=== PATIENT | female | born 1950 | race Caucasian/White ===

== ENCOUNTER → 2019-02-10 | Day surgery (SDC) | payer OTHER, BC ==
--- NOTE | 2019-02-13 14:08 | PATH ---
Surgical Pathology Report Patient Name: RACHEL MCKEON [facility]. Rec. #: [id number] /Age/Gender: 1950 (Age: 68) / F Account: [id number] Location: [facility] RADIOLOGY U Taken: 02/10/2019 Received: 02/10/2019 Reported: 02/13/2019 Physicians: Shiela Pearce M.D. Specimen(s) Received RIGHT BREAST CORE BIOPSY 2N6 Clinical History Nonpalpable lesion Ultrasound findings: Highly suspicious/malignant Final Diagnosis Breast, right, 2:00 6 CM FN, core biopsy: Invasive lobular carcinoma, CLASSICAL and trabecular type (Khadijah grade 2), measuring at least 1.1 cm in greatest dimension In this material. (See note) Lobular carcinoma in situ (LCIS), classical type. Small intraductal papilloma. Note: E-Cadherin immunostain (performed at [facility]) is negative in the invasive and in situ carcinoma, which supports lobular phenotype. Results of ER and CT studies performed at [facility] are as follows: ER (clone [id number] mouse monoclonal antibody by [employer]): > 95 % nuclear staining with strong intensity (Positive). CT (clone16 mouse monoclonal antibody by Le[employer]): ~20 % nuclear staining with moderate intensity (Positive). Results of Her2 & Ki67 studies will be reported separately in an addendum. Positive and negative controls (internal if applicable) show appropriate results. Formalin fixation and cold ischemic times are within current ASCO/CAP recommendations for ER, CT and Her2 testing. Electronically Signed Dione Holm M.D. Addendum Reported: 02/14/2019 Addendum Diagnosis Results of Her2 (IHC) & Ki-67 studies at [place], [place] ([id number]) are as follows: Her2 IHC (EP3 from [employer], formerly known as [id number], using Dunn Polymer Refine detection kit): 0 (negative). Ki-67: ~20% (intermediate proliferative index). Positive and negative controls (internal if applicable) show appropriate results. Dione Holm M.D. Gross Description Received in formalin labeled "right breast 2:00, 6 cmfn," is a 2.7 x 2.2 x 0.3 cm aggregate of multiple bui-yellow, irregular to cylindrical portions of fibroadipose tissue admixed with blood clot. The formalin is filtered and the specimen is entirely submitted in one cassette. Time to formalin fixation: < 1 minute Total formalin fixation time: Approximately 6 hours. 02/10/201902/10/2019
--- NOTE | 2019-02-13 16:29 | OP ---
DATE OF OPERATION: 02/10/2019 PREOPERATIVE DIAGNOSIS: Right breast mass 2 o'clock 6 cm from the nipple. POSTOPERATIVE DIAGNOSIS: Right breast mass 2 o'clock 6 cm from the nipple. PROCEDURE: Right ultrasound-guided core biopsy with clip placement. ANESTHESIA: Local. ATTENDING SURGEON: Grace Chin MD ESTIMATED BLOOD LOSS: Minimal. COMPLICATIONS: None. DESCRIPTION OF PROCEDURE: Patient was made aware of the risks and benefits of the procedure and consented. She was placed in a supine position, and under sterile conditions after local anesthesia was administered, small kat was made in the skin. Using a 10-gauge suction biopsy device via lateral approach, multiple cores were obtained and submitted to Pathology. Likewise, under ultrasound guidance, a bowtie clip was placed into the biopsy region. Well tolerated by patient. Steri-Strips and a sterile bandage were applied. We will contact her with results. GRACE CHIN M.D. [id number]
== END | disposition home or self-care (01) ==
LOC: EDSTATUS 13:00 → FRADUS 13:01 → FRADUS-SUR 13:21
PROVIDERS: ATTEND Surgery Surgical Oncology
PROC: 0HBT3ZX Excision of Right Breast, Percutaneous Approach, Diagnostic (ICD-10-PCS; principal; 2019-02-10)
DX: C50.911 Malignant neoplasm of unspecified site of right female breast (principal); Z17.0 Estrogen receptor positive status [ER+]; D24.1 Benign neoplasm of right breast; N63.12 Unspecified lump in the right breast, upper inner quadrant
CPT/HCPCS: 19083; 77065-TC; 87899; 88305-TC; 88342-TC; A4648

== ENCOUNTER 2019-03-02 10:10 | Inpatient (IN) | payer OTHER, BC ==
[2019-02-21 15:20] VITALS: BMI 34.9
--- NOTE | 2019-03-01 10:16 | HP ---
Admitting History and Physical - Primary Care Physician PCP: Wilver Santiago - Admission Chief Complaint: right breast cancer History of Present Illness: Patient is a 68 yo female with h/o left mastectomy sec to breast cancer (2011) who presents with a right mammo and US on 01/30 showing a suspicious density in the right 2 oclock position. Patient underwent a core bx of this lesion which revealed an invasive lobular ca ER positive, CA pos, HER 2 neg. Patient was unable to undergo MRI sec to elevated BUN/Creatinine. Patient has opted to have a right mastectomy with reconstruction. History Source: Patient Limitations to Obtaining History: No Limitations - Past Medical History Gastrointestinal: Yes: Cancer (left breast cancer 2011, 2006) ...: No Heme/Onc: Yes: Thrombocytopenia, Other (TTP) - Past Surgical History Past Surgical History: Yes: Breast Biopsy (Left breast (1971) left breast WE and snbx (2006)), Mastectomy (Left mastectomy and snbx (2011)) - Smoking History Smoking history: Former smoker Have you smoked in the past 12 months: No If you are a former smoker, when did you quit?: - Alcohol/Substance Use Hx Alcohol Use: Yes (RARE) Home Medications - Allergies Allergies/Adverse Reactions: Allergies Allergy/AdvReac Type Severity Reaction Status Date / Time Penicillins Allergy Intermediate Swelling Verified 02/21/19 14:54 ENVIRONMENTAL Allergy Mild Itching Uncoded 02/21/19 14:54 - Home Medications Home Medications: Ambulatory Orders Andrew/D3/Mag11/Zinc/Molybdenum Steamer Operator/Zain/Bor [Caltrate 600+D Plus Tablet] 1 each PO DAILY Cholecalciferol (Vitamin D3) [Vitamin D3] 2,000 unit PO DAILY 02/21/19 Levothyroxine [Synthroid -] 125 mcg PO DAILY 02/21/19 Psyllium Husk [Metamucil] 0.4 gm PO ASDIR PRN 02/21/19 Family Medical History Family Hx Cancer: Father (colon cancer), Sister (melanoma) Review of Systems - Review of Systems Constitutional: reports: No Symptoms Cardiovascular: reports: No Symptoms Respiratory: reports: No Symptoms Physical Examination Constitutional: Yes: Well Nourished, Calm Breast(s): Yes: Other (Left mastectomy site is well healed with implant placement. No suspicious masses noted over mastectomy site. Right side without suspicious masses or adenopathy noted bilaterally.) Problem List - Problems (1) Breast cancer, right Code(s): C50.911 - MALIGNANT NEOPLASM OF UNSP SITE OF RIGHT FEMALE BREAST Qualifiers: Patient sex: female (2) History of left breast cancer Code(s): Z85.3 - PERSONAL HISTORY OF MALIGNANT NEOPLASM OF BREAST Assessment/Plan Plan: right mastectomy with snbx, lymphoscintogram, possible andx, and reconstruction
[2019-03-02] MEDS ORDERED: ceFAZolin SODIUM 1 GM VIAL ONE (13:21)
[2019-03-02] MEDS ORDERED: GENTAMICIN SO4 80 MG/2 ML VIAL ONE (13:21)
[2019-03-02] MEDS ORDERED: ISOSULFAN BLUE 10 MG/ML VIAL SQ ONE (13:21)
[2019-03-02] MEDS ORDERED: SODIUM CHLORIDE 0.9% P/F 10 ML VIAL IJ ONE ×2 (13:41→14:02)
[2019-03-02] MEDS ORDERED: BUPIVACAINE LIPOSOME/PF (EXPAREL) 266 MG/20 ML VIAL ONE (13:41)
[2019-03-02] MEDS ORDERED: fentaNYL CITRATE 250 MCG/5 ML VIAL ONE (13:42)
[2019-03-02] MEDS ORDERED: MIDAZOLAM HCL 2 MG/2 ML SINGLE DOSE VIAL ONE (13:42)
[2019-03-02] MEDS ORDERED: BUPIVACAINE HCL/PF 2.5 MG/ML - 30 ML VIAL IJ ONE (14:02)
[2019-03-02] MEDS ORDERED: ZOLPIDEM TARTRATE 5 MG TABLET PO PRN (15:50)
[2019-03-02] MEDS ORDERED: ONDANSETRON 4 MG/2 ML VIAL IVPUSH PRN (15:50)
[2019-03-02] MEDS ORDERED: ACETAMINOPHEN 325 MG TABLET (FP) PO PRN (15:50)
[2019-03-02] MEDS ORDERED: ROCURONIUM BROMIDE 50 MG/5 ML SYRINGE ONE (15:51)
[2019-03-02] MEDS ORDERED: PSYLLIUM HUSK 0.4 GM PO PRN (15:52)
[2019-03-02] MEDS ORDERED: LIDOCAINE HCL/PF 2% SDV 5ML VIAL ONE (16:13)
[2019-03-02] MEDS ORDERED: CLINDAMYCIN PHOSPHATE 600 MG/4 ML VIAL ONE ×2 (16:13)
[2019-03-02] MEDS ORDERED: NEOSTIGMINE METHYLSULFATE 0.5 MG/ML - 10 ML MDV ONE (16:14)
[2019-03-02] MEDS ORDERED: DEXAMETHASONE SOD PHOSPHATE 4 MG/1 ML VIAL ONE (16:14)
[2019-03-02] MEDS ORDERED: GLYCOPYRROLATE 0.2 MG/1 ML VIAL ONE ×2 (16:14)
[2019-03-02] MEDS ORDERED: DESFLURANE GAS 240 ML BOTTLE IH ONE (16:14)
[2019-03-02] MEDS ORDERED: PROPOFOL 20 ML ONE (16:27)
[2019-03-02] MEDS ORDERED: LACTATED RINGERS SOLUTION 1,000 ML IV SCH (16:30)
--- NOTE | 2019-03-02 17:06 | OP ---
Operative Note - Note: Operative Date: 03/02/19 Pre-Operative Diagnosis: acquired chest wall abnormality s/p bilateral mastectomy with reconstruction of left breast Operation: Left breast implant exchange,. Right breast reconstruction with accullar dermal matrix and implant. Post-Operative Diagnosis: Same as Pre-op Surgeon: Marquise Jordan Philosophy And Religion Instructor: Dione Jeffery Anesthesiologist/CUT OUT MACHINE OPERATOR: Perla Robert Anesthesia: General, Local Estimated Blood Loss (mls): 100 Fluid Volume Replaced (mls): 900 Operative Report Dictated: Yes
--- NOTE | 2019-03-02 17:09 | SURG ---
Surgery Head Nurse Note Head Nurse: Dione Jeffery PA-C Date of Service: 03/02/19 Diagnosis: acquired chest wall abnormality s/p bilateral mastectomy with reconstruction of left breast Procedure: Left breast implant exchange,. Right breast reconstruction with acelluar dermal matrix and implant. I was present for the entirety of the operative procedure. For further detail, please refer to operative report. Visit type - Case Type Case Type: Scheduled - Emergency Emergency Visit: No - New patient This patient is new to me today: Yes Date on this admission: 03/02/19
[2019-03-02] MEDS ORDERED: ONDANSETRON 4 MG/2 ML VIAL ONE (17:30)
[2019-03-02] MEDS ORDERED: PROMETHAZINE HCL 25 MG/1 ML VIAL IVPUSH ONE ×2 (17:35→17:55)
[2019-03-02] MEDS ORDERED: PROMETHAZINE HCL 25 MG/1 ML VIAL ONE (17:39)
[2019-03-02] MEDS: DEXTROSE 5%-0.45% SALINE 1,000 ML IV SCH (18:10)
--- NOTE | 2019-03-02 20:11 | OP ---
DATE OF OPERATION: 03/02/2019 PREOPERATIVE DIAGNOSIS: Right breast upper inner quadrant invasive lobular cancer. POSTOPERATIVE DIAGNOSIS: Right breast upper inner quadrant invasive lobular cancer. PROCEDURE: Right breast total mastectomy with right axillary sentinel lymph node biopsy with direct implant reconstruction with Cortiva on the right and implant exchange on the left. SURGEON: Madeleine Santiago M.D. ODD SHOE EXAMINER: Harmeet Beavers Primary surgeon for the reconstruction, Madeleine Jordan M.D. COMPLICATIONS: There were no complications. ANESTHESIA: General endotracheal anesthesia. DESCRIPTION OF PROCEDURE: Briefly, the patient is a 68-year-old postmenopausal white female with a history of TTP with no family history of breast or ovarian cancer. She underwent a left breast partial mastectomy in 2003 for intermediate grade DCIS and had 2 negative sentinel nodes at that time. The cancer was ER/WA positive, and she underwent radiation therapy over the left breast but did not receive any endocrine therapy of TTP. She later developed a recurrent in the left breast and underwent a total mastectomy and repeat sentinel lymph node biopsy in July 2011 for high-grade DCIS, and again did not receive any endocrine therapy. She was doing well until she was noted to have a new right breast 2 o'clock density on screening mammography and ultrasound in January 2019 with the density measuring about 7 mm. Ultrasound guided core biopsy on February 10, 2019, showed a classical type infiltrating lobular cancer which was ER/WA positive and HER2/ravin negative. She could not undergo an MRI giving the slight increase in her BUN/creatinine. She was given the option of partial mastectomy versus mastectomy and chose to have a total mastectomy and was seen by Dr. Jordan and opted on implant reconstruction as well as exchange of her left implant for symmetry. The patient was brought in for the procedure on March 02, 2019. She underwent a lymph node scintigraphy at [facility] through a periareolar injection of technetium 99 and was brought to the [place] holding area. In the holding area, site verification was made and informed consent was obtained. She was marked preoperatively by the plastic surgeon. She was brought into the operating room and laid on the OR table in the supine position. Venodynes were placed on the lower extremities prior to induction. She received 900 mg of clindamycin prior to incision. Then 3 mL of Lymphazurin blue injected intradermally around the right breast nipple areolar complex and massage was instituted. She underwent general laryngeal mask airway anesthesia and both breasts were sterilely prepped and draped in usual fashion. Venodynes were placed on the lower extremities. Once she was properly anesthetized, the right axillary sentinel lymph node biopsy was first performed. An incision was made just below the hair-bearing area of the right axilla, and dissection was undertaken using the Neoprobe to direct the dissection. Two blue hot nodes were easily found in the level 1 region of the right axilla with the 1st having a 10-second gamma count of 27,914, and the 2nd with a 10-second gamma count of 5070. A 3rd node which was hot but not blue with a 10-second gamma count of 5984 was found in the level 2 region of the right axilla. Background counts after removing these 3 nodes was 459. Frozen section of all 3 nodes came back negative, so no further nodes were removed. At this point, a total mastectomy was performed removing the entire nipple areolar complex in the lower pole skin of the right breast. An elliptical incision was made, encompassing the skin on the lower pole of the right breast as well as the nipple areolar complex. Skin flap was raised superiorly to the level of the clavicle, medially to the level of the sternum, laterally to the level of the latissimus, and inferiorly below the level of the inframammary fold. The breast was taken out off the pectoralis major muscle from medial to lateral and completely removed intact. It was oriented with a long lateral, short superior suture, and weighed to allow for appropriate cosmetic result. Specimen radiograph of the breast was taken, showing removal of the clip with the cancer in question. A separate anterior margin was taken towards the upper inner quadrant with the suture marking the biopsy cavity side and labeled as separate right breast anterior margin. Hemostasis was achieved, and the wound was copiously irrigated with warm, sterile saline. Dr. Jordan had been performing the exchange of the left implant while I was performing the mastectomy on the right. Separate instruments were used. After the mastectomy, we used the SPY skin perfusion device, and there was good blood flow to the skin flaps on the right mastectomy. Dr. Jordan then went forward to perform the implant reconstruction on the right side, and all wounds will be closed separately by Plastic Surgery. Yfn drain will be placed around the right implant. The patient is doing well at this point in the case and was hemodynamically stable, and all sponge, needle counts were correct. Estimated blood loss was about 100 mL at this point in the case. The patient after the reconstruction will have the laryngeal mask airway tube removed and will be recovered in the post anesthesia care unit and will be admitted postoperatively for pain and wound management. Exparel was injected into the right chest wall for postoperative pain relief prior to closure. MADELEINE SANTIAGO M.D. [id number]
[2019-03-02] MEDS: oxyCODONE HCL 5 MG TABLET PO PRN (21:17)
[2019-03-02] MEDS: CEFAZOLIN 1 GM/D5W 1 GM/50 ML BAG IVPB SCH (21:17)
[2019-03-03] MEDS: CEFAZOLIN 1 GM/D5W 1 GM/50 ML BAG IVPB SCH ×4 (03:28→20:29)
[2019-03-03] MEDS: oxyCODONE HCL 5 MG TABLET PO PRN ×4 (03:42→21:37)
[2019-03-03] MEDS: LEVOTHYROXINE NA 125 MCG TABLET (FP) PO SCH (06:38)
[2019-03-03 08:12] LABS: HEMATOCRIT 36.4 % (32.4-45.2); HEMOGLOBIN 12.1 GM/dl (10.7-15.3); MCH 30.3 pg (25.7-33.7); MCHC 33.2 g/dl (32.0-36.0); MEAN CELL VOLUME 91.2 fl (80-96); MEAN PLT VOLUME 7.9 fl (7.5-11.1); PLATELET COUNT 221 K/MM3 (134-434); RBC 3.99 M/mm3 (3.60-5.2); RDW 14.4 % (11.6-15.6); WHITE BLOOD COUNT 7.3 K/mm3 (4.0-10.8)
[2019-03-03] MEDS ORDERED: PATIENT'S OWN MEDICATION (NON-FORMULARY) (Cal/D3/Mag11/Zinc/Cop/Mang/Bor [Caltrate 600+D P PO SCH (10:00)
[2019-03-03] MEDS: CHOLECALCIFEROL (VIT D3) 1,000 UNIT (25 MCG) TABLET PO SCH (10:22)
[2019-03-03] MEDS: HEPARIN NA (PORCINE) 5,000 UNITS/ML 1ML VIAL SQ SCH ×2 (10:23→21:32)
--- NOTE | 2019-03-03 11:14 | PN ---
Progress Note, Physician Chief Complaint: S/P right mastectomy with snbx and bilateral reconstruction with implants POD #1 History of Present Illness: Patient was seen today sitting up in a chair and complains of right chest lateral pain with movement. She does report a small area of ecchymosis under her left eye. Otherwise she is tolerating po well. - Current Medication List Current Medications: Active Medications Acetaminophen (Tylenol -) 650 mg PO Q4H PRN PRN Reason: FEVER Cholecalciferol (Vitamin D3 -) 2,000 unit PO DAILY [facility] Last Admin: 03/03/19 10:22 Dose: 2,000 unit Fentanyl (Sublimaze Injection -) 50 mcg IVPUSH [id number] PRN PRN Reason: PAIN-PACU ORDER X 4 DOSES ONLY Heparin Sodium (Porcine) (Heparin -) 5,000 unit SQ BID [facility] Last Admin: 03/03/19 10:23 Dose: Not Given Cefazolin Sodium (Ancef 1 Gm Premixed Ivpb -) 1 gm in 50 mls @ 100 mls/hr IVPB Q6H-IV [facility] Stop: 03/09/19 20:59 Last Admin: 03/03/19 10:23 Dose: 100 mls/hr Dextrose/Sodium Chloride (D5-1/2ns -) 1,000 mls @ 100 mls/hr IV ASDIR [facility] Last Admin: 03/02/19 18:10 Dose: 300 mls Lactated Ringer's (Lactated Ringers Solution) 1,000 mls @ 75 mls/hr IV ASDIR [facility] Levothyroxine Sodium (Synthroid -) 125 mcg PO DAILY@0700 [facility] Last Admin: 03/03/19 06:38 Dose: 125 mcg Non-Formulary Medication (Andrew/D3/Mag11/Zinc/Pump Runner/Zain/Bor [Caltrate 600+D Plus Tablet]) 1 each PO DAILY [facility] Non-Formulary Medication (Psyllium Husk [Metamucil]) 0.4 gm PO ASDIR PRN PRN Reason: CONSTIPATION Ondansetron HCl (Zofran Injection) 4 mg IVPUSH Q6H PRN PRN Reason: NAUSEA AND/OR VOMITING Oxycodone HCl (Roxicodone -) 10 mg PO Q4H PRN PRN Reason: PAIN LEVEL 6-10 Last Admin: 03/03/19 10:22 Dose: 10 mg Zolpidem Tartrate (Ambien -) 5 mg PO HS PRN PRN Reason: Insomnia - Objective Vital Signs: Vital Signs Temperature 97.8 F 03/03/19 06:00 Pulse Rate 82 03/03/19 06:00 Respiratory Rate 18 03/03/19 06:00 Blood Pressure 130/64 03/03/19 06:00 O2 Sat by Pulse Oximetry (%) 96 03/03/19 08:45 Constitutional: Yes: Well Nourished, Anxious Eyes: Yes: Other (Small area of ecchymosis noted under left eye without any changes in vision.) Breast(s): Yes: Other (Bilateral flaps are warm with ecchymosis noted in right flap. The JPs are intact with serosanginous discharge noted. No erythema) Labs: CBC, BMP 03/03/19 07:47 Problem List - Problems (1) Breast cancer, right Code(s): C50.911 - MALIGNANT NEOPLASM OF UNSP SITE OF RIGHT FEMALE BREAST Qualifiers: Patient sex: female (2) History of left breast cancer Code(s): Z85.3 - PERSONAL HISTORY OF MALIGNANT NEOPLASM OF BREAST Assessment/Plan Assessment S/ right mastectomy with snbx, right implant placement, left exchange of implant POD#1 Plan: OOB today with assistance Anesthesia to evaluate for better pain control Teach ZAKIA monitoring. Continue current tx regime
[2019-03-03] MEDS ORDERED: diazePAM 5 MG TABLET PO PRN (14:31)
--- NOTE | 2019-03-03 14:31 | PN ---
Progress Note, Physician Chief Complaint: s/p right total mastectomy, post op day one History of Present Illness: under general anesthesia with oral analgesics for pain control - Current Medication List Current Medications: Active Medications Acetaminophen (Tylenol -) 650 mg PO Q4H PRN PRN Reason: FEVER Cholecalciferol (Vitamin D3 -) 2,000 unit PO DAILY [facility] Last Admin: 03/03/19 10:22 Dose: 2,000 unit Fentanyl (Sublimaze Injection -) 50 mcg IVPUSH [id number] PRN PRN Reason: PAIN-PACU ORDER X 4 DOSES ONLY Heparin Sodium (Porcine) (Heparin -) 5,000 unit SQ BID [facility] Last Admin: 03/03/19 10:23 Dose: Not Given Cefazolin Sodium (Ancef 1 Gm Premixed Ivpb -) 1 gm in 50 mls @ 100 mls/hr IVPB Q6H-IV [facility] Stop: 03/09/19 20:59 Last Admin: 03/03/19 10:23 Dose: 100 mls/hr Dextrose/Sodium Chloride (D5-1/2ns -) 1,000 mls @ 100 mls/hr IV ASDIR [facility] Last Admin: 03/02/19 18:10 Dose: 300 mls Lactated Ringer's (Lactated Ringers Solution) 1,000 mls @ 75 mls/hr IV ASDIR [facility] Levothyroxine Sodium (Synthroid -) 125 mcg PO DAILY@0700 [facility] Last Admin: 03/03/19 06:38 Dose: 125 mcg Non-Formulary Medication (Andrew/D3/Mag11/Zinc/Shipping Packer/Zain/Bor [Caltrate 600+D Plus Tablet]) 1 each PO DAILY [facility] Non-Formulary Medication (Psyllium Husk [Metamucil]) 0.4 gm PO ASDIR PRN PRN Reason: CONSTIPATION Ondansetron HCl (Zofran Injection) 4 mg IVPUSH Q6H PRN PRN Reason: NAUSEA AND/OR VOMITING Oxycodone HCl (Roxicodone -) 10 mg PO Q4H PRN PRN Reason: PAIN LEVEL 6-10 Last Admin: 03/03/19 10:22 Dose: 10 mg Zolpidem Tartrate (Ambien -) 5 mg PO HS PRN PRN Reason: Insomnia - Objective Vital Signs: Vital Signs Temperature 98.4 F 03/03/19 14:11 Pulse Rate 88 03/03/19 14:11 Respiratory Rate 18 03/03/19 14:11 Blood Pressure 125/59 L 03/03/19 14:11 O2 Sat by Pulse Oximetry (%) 98 03/03/19 14:11 Constitutional: Yes: Well Nourished Cardiovascular: Yes: WNL Respiratory: Yes: WNL Gastrointestinal: Yes: WNL Labs: CBC, BMP 03/03/19 07:47 Assessment/Plan no anesthetic complications, complaining of pain this AM, controlled with oral analgesics, if insufficient, will add valium PO. Otherwise will sign off care at this time
[2019-03-03] MEDS: DEXTROSE 5%-0.45% SALINE 1,000 ML IV SCH (16:42)
[2019-03-04] MEDS ORDERED: diphenhydrAMINE HCL 25 MG CAPSULE (FP) PO PRN (01:01)
[2019-03-04] MEDS: CEFAZOLIN 1 GM/D5W 1 GM/50 ML BAG IVPB SCH ×2 (02:05→09:53)
[2019-03-04] MEDS: LEVOTHYROXINE NA 125 MCG TABLET (FP) PO SCH (06:31)
[2019-03-04] MEDS: oxyCODONE HCL 5 MG TABLET PO PRN (06:31)
--- NOTE | 2019-03-04 08:58 | PN ---
Progress Note, Physician Chief Complaint: Right breast cancer s/p right total mastectomy and Etoile Lymph Node biopsy and immediate direct to implant reconstruction with acellular dermal matrix. History of Present Illness: The patient has a history of left breast cancer with DCIS and initially underwent a partial mastectomy and SLN biopsy but later developed a recurrence requiring a left breast mastectomy and implant reconstruction. She now presents with a newly diagnosed right breast cancer and decided on a mastectomy and immediate implant reconstruction. - Current Medication List Current Medications: Active Medications Acetaminophen (Tylenol -) 650 mg PO Q4H PRN PRN Reason: FEVER Cholecalciferol (Vitamin D3 -) 2,000 unit PO DAILY [facility] Last Admin: 03/03/19 10:22 Dose: 2,000 unit Diazepam (Valium -) 5 mg PO Q6H PRN PRN Reason: PAIN LEVEL 6-10 Diphenhydramine HCl (Benadryl -) 25 mg PO Q6H PRN PRN Reason: FOR ITCHING Last Admin: 03/04/19 01:23 Dose: 25 mg Fentanyl (Sublimaze Injection -) 50 mcg IVPUSH [id number] PRN PRN Reason: PAIN-PACU ORDER X 4 DOSES ONLY Heparin Sodium (Porcine) (Heparin -) 5,000 unit SQ BID [facility] Last Admin: 03/03/19 21:32 Dose: Not Given Cefazolin Sodium (Ancef 1 Gm Premixed Ivpb -) 1 gm in 50 mls @ 100 mls/hr IVPB Q6H-IV [facility] Stop: 03/09/19 20:59 Last Admin: 03/04/19 02:05 Dose: 100 mls/hr Dextrose/Sodium Chloride (D5-1/2ns -) 1,000 mls @ 100 mls/hr IV ASDIR [facility] Last Admin: 03/03/19 16:42 Dose: Not Given Lactated Ringer's (Lactated Ringers Solution) 1,000 mls @ 75 mls/hr IV ASDIR [facility] Last Admin: 03/03/19 16:42 Dose: Not Given Levothyroxine Sodium (Synthroid -) 125 mcg PO DAILY@0700 [facility] Last Admin: 03/04/19 06:31 Dose: 125 mcg Non-Formulary Medication (Andrew/D3/Mag11/Zinc/Technical Manager/Zain/Bor [Caltrate 600+D Plus Tablet]) 1 each PO DAILY [facility] Non-Formulary Medication (Psyllium Husk [Metamucil]) 0.4 gm PO ASDIR PRN PRN Reason: CONSTIPATION Ondansetron HCl (Zofran Injection) 4 mg IVPUSH Q6H PRN PRN Reason: NAUSEA AND/OR VOMITING Oxycodone HCl (Roxicodone -) 10 mg PO Q4H PRN PRN Reason: PAIN LEVEL 6-10 Last Admin: 03/04/19 06:31 Dose: 10 mg Zolpidem Tartrate (Ambien -) 5 mg PO HS PRN PRN Reason: Insomnia - Objective Vital Signs: Vital Signs Temperature 98.9 F 03/04/19 04:00 Pulse Rate 90 03/04/19 04:00 Respiratory Rate 18 03/04/19 04:00 Blood Pressure 136/55 L 03/04/19 04:00 O2 Sat by Pulse Oximetry (%) 95 03/04/19 04:00 Constitutional: Yes: Well Nourished, No Distress Eyes: Yes: WNL HENT: Yes: WNL Neck: Yes: WNL Cardiovascular: Yes: Regular Rate and Rhythm Respiratory: Yes: Regular, CTA Bilaterally Gastrointestinal: Yes: Normal Bowel Sounds, Soft ...Rectal Exam: Yes: Deferred Genitourinary: Yes: WNL Breast(s): Yes: Other (Mastectomy wounds clean, dry, and intact. Drains functioning well.) Musculoskeletal: Yes: WNL Extremities: Yes: WNL Integumentary: Yes: WNL Wound/Incision: Yes: Clean/Dry, Well Approximated Neurological: Yes: WNL Psychiatric: Yes: Alert, Oriented Labs: CBC, BMP 03/03/19 07:47 Problem List - Problems (1) Breast cancer, right Assessment/Plan: The patient is doing well POD#2 s/p right total mastectomy and sentinel lymph node biopsy with direct to implant reconstruction with Cortiva and exchange of left implant. Her wounds are healing well with no signs of hematoma or infection. Drains functioning well. She has good pain control but some pruritis and is using benadryl. She is ambulating and tolerating her diet. she is stable for discharge today. She will be taught drain care and will be sent home on oral antibiotics and percocet for pain. Follow up with Annabella Santiago and Julian in 1 week. No heavy lifting or exercise and no bath/ shower until drains removed. Code(s): C50.911 - MALIGNANT NEOPLASM OF UNSP SITE OF RIGHT FEMALE BREAST Qualifiers: Breast location: upper inner quadrant of breast Estrogen receptor status: positive Patient sex: female Qualified Code(s): C50.211 - Malignant neoplasm of upper-inner quadrant of right female breast; Z17.0 - Estrogen receptor positive status [ER+]
--- NOTE | 2019-03-04 09:12 | DS ---
Physical Examination Vital Signs: Vital Signs Temperature 98.9 F 03/04/19 04:00 Pulse Rate 90 03/04/19 04:00 Respiratory Rate 18 03/04/19 04:00 Blood Pressure 136/55 L 03/04/19 04:00 O2 Sat by Pulse Oximetry (%) 95 03/04/19 04:00 Constitutional: Yes: Well Nourished, No Distress Eyes: Yes: WNL HENT: Yes: WNL Neck: Yes: Supple, Trachea Midline Cardiovascular: Yes: Regular Rate and Rhythm Respiratory: Yes: Regular, CTA Bilaterally Gastrointestinal: Yes: Normal Bowel Sounds, Soft ...Rectal Exam: Yes: Deferred Renal/: Yes: WNL Breast(s): Yes: Other (Mastectomy wounds clean, dry, and intact. Skin flaps viable. 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 Hospital Course: The patient was admitted postoperatively for pain control and wound management. She did well and had good pain control with warm viable skin flaps and was stable for discharge on POD#2. Condition: Good - Instructions Diet, Activity, Other Instructions: BREAST SURGERY INSTRUCTIONS Juan Santiago M.D., GLYNN Santiago M.D., FACS Grace Tian M.D., FACS 1. Please call the office at to make a follow up appointment with your surgeon. This number can be also used for any urgent issues you may have. 2. Call us immediately if any of the following occur: *Bleeding from the incision or drain site (a small amount is normal) *Fever or chills *Redness and worsening tenderness around the surgical site *Drainage of pus or fluid from the incision or drain site 3. You may change the surgical dressing two (2) days after your surgery, and may shower then. If you have drains, you may shower after they have been removed, until then take a sponge bath. 4. It is normal for there to be some bruising and tenderness around the surgical site, and the breast may also be firm in this area. 5. Your surgeon used 3M DuraPrep Surgical Solution, a bacteria-killing skin preparation. It is recommended that this film remain on the skin after the procedure. The film will gradually wear away. If, however, early removal is desired: 1. Apply 8610 or 8611 3M Remover solution to the prepped area, keeping away from the wound edge or puncture site. Wipe off with a disposable towel. OR 2. Soak gauze with 70% Isopropyl alcohol and place on the prepped area for at least 40 seconds. Lightly scrub to remove the solution. 6. Please wear a comfortable bra (sports or surgical bra) all day and all night until your first follow-up visit with your surgeon. 7. The pain medicine you have been prescribed may make you constipated; make sure you drink plenty of water. You may use an over the counter laxative if needed. 8. You may resume your normal diet after surgery, although you may want to avoid rich foods for the first twenty-four (24) hours after surgery. Alcoholic drinks should be avoided while taking the prescribed pain medicine. 9. You may resume normal activities as long as there is no discomfort, but do not do upper body exercises until after your follow-up appointment. Do not lift anything heavier than a large phone book. You may resume driving once you have stopped taking the prescribed pain medicine and feel comfortable doing arm movements.Diet: Resume regular diet. Encourage low salt diet to help with swelling. Encourage fluid intake. Activity: Please take it easy for the first few days. Can shower 48 hours after surgery. Please be careful moving your arms too much and using your pectoralis muscles ( chest) for the first few days as well. Wound care: Please keep all dressings on as is. Can remove the gauze in bra before showering , but leave all the tapes/steri-strips on. Please wear surgical bra at all times, except when showering. Swelling in the abdomen, flanks and thighs is to be expected. Feeling of deep soreness is also to be expected. Please wear spanx/compression pants/yoga pants as much as you can to help with the swelling. Medication: Patient already received all prescriptions prior to surgery. Please take them as instructed. Appointment: Please call our office within one week to make an appointment to see Dr. Jordan/Vaughn OLGUIN. Call [phone]. If you have any questions or concerns, please call/return to office sooner. Referrals: Wilver Santiago MD [Staff Physician] - Disposition: HOME - Home Medications Comprehensive Discharge Medication List: Ambulatory Orders Andrew/D3/Mag11/Zinc/Porcelain Buildup Assistant/Zain/Bor [Caltrate 600+D Plus Tablet] 1 each PO DAILY Cholecalciferol (Vitamin D3) [Vitamin D3] 2,000 unit PO DAILY 02/21/19 Levothyroxine [Synthroid -] 125 mcg PO DAILY 02/21/19 Psyllium Husk [Metamucil] 0.4 gm PO ASDIR PRN 02/21/19 Ciprofloxacin HCl [Cipro] 500 mg PO BID 10 Days #20 tablet 03/03/19 Oxycodone HCl/Acetaminophen [Percocet 5-325 mg Tablet -] 1 - 2 tab PO Q6H #20 tablet MDD 6 03/03/19
[2019-03-04] MEDS: CHOLECALCIFEROL (VIT D3) 1,000 UNIT (25 MCG) TABLET PO SCH (09:55)
[2019-03-04] MEDS: HEPARIN NA (PORCINE) 5,000 UNITS/ML 1ML VIAL SQ SCH (09:55)
[2019-03-04 12:36] VITALS: BP 126/57; PULSE 88; TEMP 99
--- NOTE | 2019-03-06 09:01 | OP ---
DATE OF OPERATION: 03/02/2019 SURGEON: Madeleine Jordan MD [employer] SURGEON: SHARIF Lerma PREOPERATIVE DIAGNOSES: 1. 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 2. Left breast chest wall deformity status post mastectomy prior with asymmetry of reconstructed chest wall. POSTOPERATIVE DIAGNOSES: 1. 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 2. Left breast chest wall deformity status post mastectomy prior with asymmetry of reconstructed chest wall. OPERATIVE PROCEDURE: 1. Capsulotomy, removal and replacement of delayed reconstruction, left breast with an inpatient exchange. 2. Immediate right breast reconstruction utilizing immediate insertion of silicone breast implant and Cortiva reconstruction. OPERATIVE INDICATION: Patient is a woman who was brought to the operating room by Madeleine Santiago for a right breast mastectomy for a history and now new breast cancer. A dictation for the operative procedure will be dictated under separate cover by Dr. Santiago. The risks and benefits of surgical versus nonsurgical alternatives as well as the material complications of the above procedures including immediate right breast reconstruction and a left implant exchange with capsulotomy was described on multiple occasions including today in the holding area with her in attendance. All questions were asked and answered. She agreed to the planned procedure. OPERATIVE PROCEDURE IN DETAIL: Patient was taken to the operating room, and after induction of general anesthesia in supine position, both arms were extended and padded. Venodyne boots were placed. The entire chest wall was prepped ChloraPrep solution over its entire extent and then the operation began after prepping and draping and time-out in the usual fashion. At this point, my attention was turned to the left breast, and Dr. Santiago began the procedure on the right breast being dictated under separate cover. On the left breast, the mastectomy scar, which was seen from prior mastectomy, was opened down through the skin using a No. 10 scalpel through the skin down to the subcutaneous tissue through the subcutaneous tissue down to underlying capsule. The capsule was then opened with the electrocautery down to the underlying implant. The implant was noted to be 400 mL volume, which was placed prior, and a small leakage of silicone material was seen from the back of the implant around the patch. No gross spillage was noted within the pocket, and the pocket was copiously irrigated with saline and triple antibiotic solution of 1 L. 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 At this point, after copious irrigation and prep with Betadine with the skin, the wound was closed in layers. The capsule was closed using 3-0 PDS suture in a running and interrupted fashion along the entire extent of the mastectomy scar and then 3-0 PDS was used to close the dermal layer. A subcuticular suture with 4-0 Biosyn was placed into the skin for a 3-layered closure. Once this was accomplished, attention was turned back to the right breast. After completion of the mastectomy on the right breast and prepping of the wound, the end was copiously irrigated with triple antibiotic solution and saline. Hemostasis was achieved meticulously obtained throughout. At this point, the pectoralis major muscle was elevated using sharp dissection with electrocautery and the lighted retractor. Once the muscle was elevated in the usual fashion, a sheet of large, contour, tailored allograft Cortiva was placed into the pocket and then sutures to the pectoralis major muscle using 3-0 Vicryl suture in a running fashion along the pectoralis major muscle out to the lateral mammary fold. This was followed running in an inferior direction along the lateral mammary fold for recreation. A 2nd suture was begun on the medial side creating the medial fold on the breast and then once this was accomplished down to the inframammary fold, an implant was chosen. The same size implant of 620 mL volume style 107 Sientra Smooth Round High Profile implant was placed into the right breast pocket. The breast tissue previously removed weighed 857 g. Once the implant was placed in the pocket, the sutures were run together medially and laterally to the central portion and then sutured and tied together closing the pocket in anatomic fashion to match the opposite side. At this point, the skin and subcutaneous tissue was closed over two 15 Yfn drains and closed with 3-0 PDS in the deep tissue, 3-0 in a deep dermal fashion, and 4-0 Biosyn in subcuticular fashion. Dermabond and Steri-Strips dressings were then placed over the mastectomy scars themselves, and the patient was dressed in a Surgi-Bra. She was awakened, extubated, and transferred to recovery room in satisfactory condition. MADELEINE JORDAN M.D. [id number]
--- NOTE | 2019-03-07 16:00 | PATH ---
Surgical Pathology Report Patient Name: RACHEL MCKEON Med. Rec. #: [id number] /Age/Gender: 1950 (Age: 68) / F Account: [id number] Location: [facility] MED-SURG Taken: 03/02/2019 Received: 03/02/2019 Reported: 03/07/2019 Physicians: Wilver Santiago M.D. Specimen(s) Received A: RIGHT AXILLARY SENTINEL NODE #1 (FS) B: RIGHT AXILLARY SENTINEL NODE # 2 (FS) C: RIGHT AXILLARY SENTINEL NODE # 3 (FS) D: LEFT BREAST IMPLANT E: RIGHT BREAST, MASTECTOMY F: RIGHT BREAST ANTERIOR MARGIN Clinical History h/o L breast mastectomy in 2011 now with right breast cancer Intraoperative Consult Diagnosis A. Right axillary sentinel node #1, frozen section: One negative lymph node (0/1). B. Right axillary sentinel node #2, frozen section: One negative lymph node (0/1). C. Right axillary sentinel node #3, frozen section: One negative lymph node (0/1). Shey Kuo 03/02/19 Final Diagnosis A. lymph node, right axillary sentinel #1, excision (FS): One lymph node, negative for metastatic carcinoma on H&E sections and cytokeratin (AE 1/3) immunostain. (0/1) B. lymph node, right axillary sentinel #2, excision (FS): One lymph node, negative for metastatic carcinoma on H&E sections and cytokeratin (AE 1/3) immunostain. (0/1) C. lymph node, right axillary sentinel #3, excision (FS): One lymph node, negative for metastatic carcinoma on H&E sections and cytokeratin (AE 1/3) immunostain. (0/1) D. Implant, left breast, removal: Implant, as described (gross examination only). E. breast, right, total mastectomy: Invasive lobular carcinoma, classical and trabecular type (tubule score: 3/3, nuclear grade: 2/3, mitotic score: 2/3, total score: 7/9; Khadijah grade 2). Invasive carcinoma measures 1.1 cm in greatest dimension, microscopically with AN additional satellite tumor nodule measuring 0.7 cm in greatest dimension, microscopically. Lobular carcinoma in situ (LCIS), classical type. Surgical margins are uninvolved by invasive carcinoma; carcinoma is at 0.7 cm FROM the closest (posterior) margin. see also specimen F FOR final anterior margin. Nipple and skin are uninvolved by carcinoma. No lymphovascular invasion is identified. Remaining breast tissue shows proliferative fibrocystic changes including cystic apocrine metaplasia with usual ductal hyperplasia (UDH), flat epithelial atypia (fea), focal atypical ductal hyperplasia (adH), columnar cell change, radial scars, intraductal papillomas, sclerosing adenosis and associated calcifications. PRIOR BIOPSY SITE CHANGES ARE PRESENT. Pathologic stage (pTNM): pT1c (m) pN0. see also invasive carcinoma Case summary below. F. anterior margin, right breast, excision: Benign predominantly fatty breast tissue. Comments Breast Invasive Carcinoma: Surgical Pathology Case Summary (Based on AJCC TNM 8 th edition) Procedure _X_ Total mastectomy (including nipple-sparing and skin-sparing mastectomy) Specimen Laterality _X_ Right Tumor Size _X_ Greatest dimension of largest invasive focus >1 mm (millimeters): 11 mm Histologic Type _X_ Invasive lobular carcinoma Histologic Grade (Edison Histologic Score) Glandular (Acinar)/Tubular Differentiation _X_ Score 3 (<10% of tumor area forming glandular/tubular structures) Nuclear Pleomorphism _X_ Score 2 Mitotic Rate _X_ Score 2 Overall Grade _X_ Grade 2 (scores of 6 or 7) Tumor Focality _X_ Multiple foci of invasive carcinoma Number of foci: 2 Sizes of individual foci: 11 mm, 7 mm Ductal Carcinoma In Situ (DCIS) _X_ No DCIS in specimen Margins Invasive Carcinoma Margins _X_ Uninvolved by invasive carcinoma Distance from closest margin (millimeters): 7 mm from posterior margin. Regional Lymph Nodes _X_ Uninvolved by tumor cells Number of Lymph Nodes Examined: 3 Number of [place] Nodes Examined: 3 Treatment Effect _X_ No known presurgical therapy Lymphovascular Invasion _X_ Not identified Pathologic Stage Classification (pTNM, AJCC 8th Edition) Primary Tumor (Invasive Carcinoma) (pT) _X_ pT1c (m): Tumor >10 mm but =20 mm in greatest dimension Regional Lymph Nodes (pN) Category (pN) _X_ pN0: No regional lymph node metastasis identified or ITCs only Biomarker Studies Results of ER and SC studies performed on prior biopsy ([id number]) at [facility] are as follows: ER (clone [id number] mouse monoclonal antibody by [employer]) : >95 % nuclear staining with strong intensity (positive). SC (clone16 mouse monoclonal antibody by [employer]): ~20 % nuclear staining with strong intensity (positive). Results of Her2 (IHC) & Ki-67 studies performed on prior biopsy ([id number]) at [place], [place] ([id number]) are as follows: Her2 IHC (EP3 from [employer], formerly known as [id number], using Dunn Polymer Refine detection kit): 0 (negative). Ki67: ~20% (Intermediate proliferative index). Electronically Signed Dione Holm M.D. Gross Description A. Received fresh for frozen section evaluation, labeled "right axillary sentinel node #1" is a 1.2 x 0.5 x 0.4 cm lymph node with attached fatty tissue. The lymph node is bisected and frozen section is performed on the lymph node. The frozen section residue is entirely submitted in one cassette. B. Received fresh for frozen section evaluation, labeled "right axillary sentinel node #2" is a 0.7 x 0.5 x 0.3 cm lymph node with attached fatty tissue. Frozen section is performed on the lymph node. The frozen section residue is entirely submitted in one cassette. C. Received fresh for frozen section evaluation, labeled "right axillary sentinel node #3" is a 0.6 x 0.3 x 0.2 cm lymph node with attached fatty tissue. Frozen section is performed on the lymph node. The frozen section residue is entirely submitted in one cassette. D. Received fresh labeled "left breast implant," is a 12.5 cm in diameter x 3.0 cm in depth clear, rubbery, intact breast implant. No soft tissue is present. No sections are submitted, gross only. E. Received in formalin, labeled "right breast mastectomy," is an 867 gram, 19.0 x 17.5 x 5.5 cm. right mastectomy specimen with a short suture marking the superior aspect and a long suture marking the lateral aspect of the specimen, per the surgeon. The anterior surface displays a 15.0 x 12.5 cm bui, irregular portion of skin with a 1.1 cm in diameter nipple. The deep margin is inked black and the anterior soft tissue margin is inked blue. The specimen is serially sectioned from lateral to medial. Sectioning reveals a 1.3 x 1.0 x 1.0 cm bui, indurated mass in the upper inner quadrant (UIQ). The mass is 1.2 cm from the deep margin and is 2.5 cm from the anterior soft tissue margin. Sectioning reveals an additional hemorrhagic focus abutting the anterior soft tissue margin, also in the UIQ. No definitive mass is associated with the second hemorrhagic focus. The remaining breast parenchyma displays abundant dense, white, focally firm fibrous tissue. [employer] sections are submitted in eighteen cassettes as follows: 1-serially sectioned nipple; 2-subareolar shave; 3-4-one full-face section of UIQ mass each (each with deep margin); 0-8-hxbzeltsww sections of mass; 7-4-huntjiau of separate UIQ hemorrhagic focus, each with anterior soft tissue margin; 10-uninvolved UIQ tissue; 11-12-lower inner quadrant; 13-15-upper outer quadrant; 16-17-lower outer quadrant; 18-skin. Time to formalin fixation: 45 minutes Total formalin fixation time: Approximately 26 hours. F. Received in formalin labeled "right breast anterior margin," is a 4.1 x 3.5 x 1.4 cm portion of fibroadipose tissue with a suture marking the biopsy cavity side, per the surgeon. The new margin is inked blue and the specimen is serially sectioned. The specimen is entirely and sequentially submitted in 7 cassettes. AE/03/02/2019 ebram/03/02/2019
== END 2019-03-04 16:30 | disposition home or self-care (01) | DRG 581 ==
LOC: EDSTATUS 11:00 → FM/S 12:24 → EDSTATUS 13:30 → FM/S 18:16
PROVIDERS: ADMIT Surgery Surgical Oncology; ATTEND Surgery Surgical Oncology
PROC: 0HPU0JZ Removal of Synthetic Substitute from Left Breast, Open Approach (ICD-10-PCS; 2019-03-02)
PROC: 0HRU0JZ Replacement of Left Breast with Synthetic Substitute, Open Approach (ICD-10-PCS; 2019-03-02)
PROC: 0HTT0ZZ Resection of Right Breast, Open Approach (ICD-10-PCS; principal; 2019-03-02 14:40)
PROC: 07B50ZX Excision of Right Axillary Lymphatic, Open Approach, Diagnostic (ICD-10-PCS; 2019-03-02 14:40)
PROC: 0HRT0JZ Replacement of Right Breast with Synthetic Substitute, Open Approach (ICD-10-PCS; 2019-03-02 14:40)
DX: C50.211 Malignant neoplasm of upper-inner quadrant of right female breast (principal); M95.4 Acquired deformity of chest and rib; D69.6 Thrombocytopenia, unspecified; Z87.891 Personal history of nicotine dependence; Z17.0 Estrogen receptor positive status [ER+]; Z90.12 Acquired absence of left breast and nipple
CPT/HCPCS: 36415; 76098-TC-FY; 78195-TC; 85027; 88300-TC; 88307-TC; 88331-TC; 94760; A9541